=== PATIENT | female | born 1980 | race Caucasian/White ===

== ENCOUNTER 2018-12-26 20:31 | Emergency (ER) | payer SELFPAY ==
[2018-12-26] MEDS ORDERED: ACETAMINOPHEN 1000 MG/100 ML VIAL (NON FORMULARY) IVPB ONE (20:39)
[2018-12-26] MEDS ORDERED: METOCLOPRAMIDE HCL INJECTION 10 MG/2 ML VIAL IVPB ONE (20:39)
[2018-12-26] MEDS ORDERED: SODIUM CHLORIDE 1,000 ML IV STA (20:39)
[2018-12-26 20:40] VITALS: BP 155/90; PULSE 74; TEMP 98.1; BMI 39.0
--- NOTE | 2018-12-26 20:40 | PDOC ---
Rapid Medical Evaluation Time Seen by Provider: 12/26/18 20:37 Medical Evaluation: 12/26/18 20:38 Pt presents to the ER for headache since Monday. States it is on both of her temples. No headache history. Denies dizziness, n/v Exam: Neurologically intact Orders: labs, migraine cocktail Pt to proceed to the ER for further evaluation Discharge Disposition - Diagnosis Headache Qualifiers: Headache type: unspecified Headache chronicity pattern: acute headache Intractability: not intractable Qualified Code(s): R51 - Headache - Referrals - Patient Instructions - Post Discharge Activity
[2018-12-26 21:47] LABS: BASO % 0.6 % (0-2.0); EOS % 3.5 % (0-4.5); HEMATOCRIT 31.1 % (32.4-45.2); LYMPH % 43.1 % (8-40); MCH 27.2 pg (25.7-33.7); MCHC 32.2 g/dl (32.0-36.0); MEAN CELL VOLUME 84.3 fl (80-96); MEAN PLT VOLUME 8.6 fl (7.5-11.1); MONO % 5.3 % (3.8-10.2); NEUT % 47.5 % (42.8-82.8); PLATELET COUNT 271 K/MM3 (134-434); RBC 3.69 M/mm3 (3.60-5.2); RDW 17.1 % (11.6-15.6); WHITE BLOOD COUNT 6.4 K/mm3 (4.0-10.0)
[2018-12-26 21:49] LABS: URINE APPEARANCE CLEAR; URINE BILIRUBIN NEGATIVE (NEGATIVE); URINE COLOR YELLOW; URINE GLUCOSE (UA) NEGATIVE (NEGATIVE); URINE KETONE NEGATIVE (NEGATIVE); URINE LEUK ESTERASE TRACE (NEGATIVE); URINE NITRITE NEGATIVE (NEGATIVE); URINE PROTEIN NEGATIVE (NEGATIVE); URINE UROBILINOGEN 0.2 mg/dL (0.2-1.0)
[2018-12-26] MEDS ORDERED: ACETAMINOPHEN INJECTION 100 ML IVPB ONE (22:00)
[2018-12-26] MEDS ORDERED: METOCLOPRAMIDE HCL INJECTION 10 MG/2 ML VIAL ONE (22:00)
[2018-12-26 22:10] LABS: EPI CELLS FEW /HPF (0-5/HPF); HYALINE CASTS NEGATIVE /lpf (0-8); URINE BACTERIA FEW /hpf (NEGATIVE)
[2018-12-26 22:22] LABS: ALBUMIN 3.7 g/dl (3.4-5.0); BILIRUBIN,TOTAL 0.3 mg/dL (0.2-1); CALCIUM 9.1 mg/dL (8.5-10.1); CREATININE 0.9 mg/dL (0.55-1.3); POTASSIUM 4.3 mmol/L (3.5-5.1); TOT PROT 6.8 g/dl (6.4-8.2)
--- NOTE | 2018-12-26 23:39 | PDOC ---
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) Past History - Past Medical History Allergies/Adverse Reactions: Allergies Allergy/AdvReac Type Severity Reaction Status Date / Time No Known Allergies Allergy Verified 12/26/18 20:38 COPD: No - Suicide/Smoking/Psychosocial Hx Smoking History: Never smoked *Physical Exam - Vital Signs Last Vital Signs Temp Pulse Resp BP Pulse Ox 98.1 F 74 18 155/90 100 12/26/18 20:38 12/26/18 20:38 12/26/18 20:38 12/26/18 20:38 12/26/18 20:38 - Physical Exam General Appearance: Yes: Nourished HEENT: positive: EOMI, JAVIER, Other (vision 20/20 L eye, 20/25 R eye, 20/25 both eyes; no pain with eye movement, no mid-dilated pupil, eyes are not injected) Respiratory/Chest: positive: Lungs Clear, Normal Breath Sounds. negative: Respiratory Distress Cardiovascular: positive: Regular Rhythm, Regular Rate, S1, S2. 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 negative: Facial Droop, Sensory Deficit, Disoriented ED Treatment Course - LABORATORY CBC & Chemistry Diagram: 12/26/18 21:21 12/26/18 21:21 - ADDITIONAL ORDERS Additional order review: Laboratory Results 12/26/18 12/26/18 12/26/18 21:21 21:21 21:21 Sodium 141 Potassium 4.3 Chloride 107 Carbon Dioxide 26 Anion Gap 9 BUN 19.0 H Creatinine 0.9 Est GFR (CKD-EPI)AfAm 92.70 Est GFR (CKD-EPI)NonAf 79.98 Random Glucose 88 Calcium 9.1 Total Bilirubin 0.3 AST 19 ALT 17 Alkaline Phosphatase 50 Total Protein 6.8 Albumin 3.7 Urine Color Yellow Urine Appearance Clear Urine pH 6.0 Ur Specific [place] 1.003 L Urine Protein Negative Urine Glucose (UA) Negative Urine Ketones Negative Urine Blood Trace Urine Nitrite Negative Urine Bilirubin Negative Urine Urobilinogen 0.2 Ur Leukocyte Esterase Trace Urine WBC (Auto) 5-10 Urine RBC (Auto) 2-4 Urine Casts (Auto) Negative U Epithel Cells (Auto) Few Urine Bacteria (Auto) Few Urine HCG, Qual Negative 12/26/18 21:21 RBC 3.69 MCV 84.3 MCHC 32.2 RDW 17.1 H MPV 8.6 Neutrophils % 47.5 Lymphocytes % 43.1 H Monocytes % 5.3 Eosinophils % 3.5 Basophils % 0.6 - Medications Given in the ED: ED Medications Discontinued Medications Generic Name Dose Route Start Last Admin Trade Name Darryl PRN Reason Stop Dose Admin Acetaminophen 1,000 mg 12/26/18 20:39 12/26/18 22:10 Ofirmev Injection - IVPB 12/26/18 20:40 1,000 mg ONCE ONE Administration Diphenhydramine HCl 12.5 mg 12/26/18 20:39 12/26/18 22:10 Benadryl Injection - IVPB 12/26/18 20:40 12.5 mg ONCE ONE Administration Sodium Chloride 1,000 mls @ 1,000 mls/hr 12/26/18 20:39 12/26/18 22:10 Normal Saline - IV 12/26/18 21:38 1,000 mls/hr ASDIR STA Administration Metoclopramide HCl 10 mg 12/26/18 20:39 12/26/18 22:11 Reglan Injection - IVPB 12/26/18 20:40 10 mg ONCE ONE Administration Medical Decision Making - Medical Decision Making 38 y/o F with no sig pmh presents with SHIELDS along front and back of head x 1 week along with B/L eye pain (L>R). Wears glasses but feels vision is slightly blurred. +photophobia. Taking Tylenol helps with headache. Denies trauma, FB sensation, eye discharge, vomiting, sob, cp, numbness/tingling/weakness of extremities, pain with eye movement PE unremarkable; not suspicious for corneal abrasion, iritis, glaucoma, ICH Patient was given IVF, Tylenol, Reglan and Benadryl and on reassessment, feels much better; denies having any pain currently Likely migraine SHIELDS Stable for dc 12/26/18 23:37 *DC/Admit/Observation/Transfer Diagnosis at time of Disposition: Migraine Qualifiers: Migraine type: without aura Status migrainosus presence: without status migrainosus Intractability: not intractable Qualified Code(s): G43.009 - Migraine without aura, not intractable, without status migrainosus - Discharge Dispostion Disposition: HOME Condition at time of disposition: Improved Decision to Admit order: No - Referrals - Patient Instructions Printed Discharge Instructions: DI for Migraine Additional Instructions: Thank you for choosing [facility]. It was a pleasure taking care of you. You may take Motrin 600 mg every 6 hours by mouth as needed for mild to moderate pain. Take Motrin with food. Please follow-up in primary care center You were also referred to neurologist for further evaluation Return to the Emergency Department if your symptoms worsen or persist, you have fever, vomiting, weakness of extremities (arms and/or legs), changes in vision or walking or other concerning symptoms. Gumaro por elegir el [facility]. Fue un placer cuidar de ti. Puede andie Motrin 600 mg cada 6 horas por va oral segn sea necesario para el dolor leve a moderado. Kathe Motrin con comida. Por favor seguimiento en centro de atencin primaria Tambin lo derivaron al neurlogo para jeanne evaluacin adicional. Regrese al departamento de emergencias si arvind sntomas empeoran o persisten, tiene fiebre, vmitos, debilidad de las extremidades (brazos y / o piernas), cambios en la visin o al caminar u otros sntomas relacionados. Print Language: TAJIK - Post Discharge Activity
== END 2018-12-27 00:01 | disposition home or self-care (01) ==
LOC: JER 20:31
PROC: 3E033NZ Introduction of Analgesics, Hypnotics, Sedatives into Peripheral Vein, Percutaneous Approach (ICD-10-PCS; principal; 2018-12-26)
PROC: 3E033GC Introduction of Other Therapeutic Substance into Peripheral Vein, Percutaneous Approach (ICD-10-PCS; 2018-12-26)
PROC: 3E0337Z Introduction of Electrolytic and Water Balance Substance into Peripheral Vein, Percutaneous Approach (ICD-10-PCS; 2018-12-26)
DX: G43.009 Migraine without aura, not intractable, without status migrainosus (principal)
CPT/HCPCS: 36415; 80053; 81003; 84703; 85025; 99283-25; J0131; J7030